=== PATIENT | female | born 1960 | race Caucasian/White ===

== ENCOUNTER 2016-09-20 07:30 | Observation (INO) | payer SELFPAY ==
[~2016-09-20] VITALS: Ht 162.6 cm; Wt 94.8 kg
--- NOTE | ~2016-09-20 | HP ---
PATIENT'S NAME: GEMMA KOHLI [facility] AGE: 55 Y [address] ROOM: [place] [id number] LOCATION: GPCU ADMIT DATE: 09/20/2016 History & Physical DISCHARGE DATE: FAMILY PHYSICIAN: Oral Kasper MD ATTENDING PHYSICIAN: Oral Kasper DATE OF SERVICE: 09/20/2016 CHIEF COMPLAINT: Nausea and vomiting. HISTORY OF PRESENT ILLNESS: The patient is a 55-year-old female, who has had severe nausea and vomiting along with some mild epigastric pain. The patient states she has also been battling upper respiratory system for a couple weeks and had a Z-Siva which initially helped but then progressively got worse again. The patient was also found to be tachycardic in the emergency department with elevated white blood cell count. The patient denies any chest pain, shortness of breath, fevers, chills, or headaches. PAST MEDICAL HISTORY: 1. Arrhythmia. 2. Chronic back pain. 3. Diabetes mellitus type 2. 4. Essential hypertension. 5. Pure hypercholesterolemia. 6. Seasonal allergies. 7. Irritable bowel syndrome with diarrhea. PAST SURGICAL HISTORY: 1. Cholecystectomy. 2. Hysterectomy. 3. Tubal ligation. ALLERGIES: 1. DOXYCYCLINE. 2. LEVAQUIN. 3. . 4. ZYRTEC. MEDICATIONS: Please see list. SOCIAL HISTORY: The patient is a former tobacco user. Denies any alcohol use. PATIENT'S NAME: GEMMA KOHLI [facility] AGE: 55 Y [address] ROOM: [place] [id number] LOCATION: GPCU ADMIT DATE: 09/20/2016 History & Physical DISCHARGE DATE: FAMILY PHYSICIAN: Oral Kasper MD ATTENDING PHYSICIAN: Oral Kasper FAMILY HISTORY: Noncontributory. REVIEW OF SYSTEMS: A complete review of systems obtained, pertinent positives and negatives as mentioned in the HPI. OBJECTIVE: VITAL SIGNS: Temperature 99.4, pulse 140, respirations 16, blood pressure 124/79. GENERAL: The patient is alert and oriented. Appears in mild distress due to dehydration and nausea. HEENT: Head, normocephalic and atraumatic. Eyes, conjunctivae clear. No scleral icterus. Mouth: Oropharynx grossly moist and patent. No lesions or exudates. NECK: Supple. No lymphadenopathy or thyromegaly. HEART: Tachycardic with no murmur. LUNGS: Decreased breath sounds in bases with no crackles or wheezes. ABDOMEN: Nontender to palpation. But patient states she is having some epigastric discomfort. No rebound, guarding, or organomegaly. EXTREMITIES: No cyanosis, clubbing, or edema. VASCULAR: Pulses +2 and equal bilaterally. SKIN: No rash or lesions. LYMPHATICS: No lymphadenopathy. NEUROLOGIC: Cranial nerves 2 through 12 grossly intact. LABORATORY DATA: Show white blood cell count 16.0, hemoglobin of 15.5. Procal 0.26 and sugar of 177. Chest x-ray shows linear scarring. ASSESSMENT: 1. Dehydration. 2. Gastroenteritis with nausea and vomiting. 3. Bronchitis with elevated white blood cell count and procalcitonin. 4. History of arrhythmia. 5. Hypertension. 6. Irritable bowel syndrome. 7. Diabetes mellitus type 2. PLAN: At this time, we will admit for observation and do aggressive fluid hydration IV. With her working in the [employer] and having this bronchitis for over 2 weeks and not improving and also be hypoxic at 92% on room air, we will start vancomycin and Zosyn and monitor. We will try to get a sputum PATIENT'S NAME: GEMMA KOHLI [facility] AGE: 55 Y [address] ROOM: [place] [address] LOCATION: [facility] ADMIT DATE: 09/20/2016 History & Physical DISCHARGE DATE: FAMILY PHYSICIAN: Oral Kasper MD ATTENDING PHYSICIAN: Oral Kasper culture also. We will do Gentry's and activity as tolerated along with the diabetic diet. We will do sliding scale insulin with meals and monitor her blood pressure and also her heart rate. We will continue to use supplemental oxygen to titrate greater than 90%. MD RILEY JOHNS/hennal /[id number] D: [id number] T: [id number] HISTORY & PHYSICAL
--- NOTE | ~2016-09-20 | ER ---
PATIENT'S NAME: REGI KOHLION Jessica [facility] AGE: 55 Y [address] ROOM: [place] [address] LOCATION: GPCU ADMIT DATE: 09/20/2016 ER/Outpatient Report DISCHARGE DATE: FAMILY PHYSICIAN: Oral Kasper MD ATTENDING PHYSICIAN: Oral Kasper Time of Arrival: 0730 hours. Time of Evaluation: 0744 hours. IDENTIFICATION: A 55-year-old female. CHIEF COMPLAINT: Vomiting. HISTORY OF PRESENT ILLNESS: The patient is a 55-year-old female, who works as an RN at [employer], who has had nausea, vomiting throughout the night, unable to keep anything down despite some oral Zofran she has taken. She denies any other problems. She states that her temperature is normally low and so a temp of 99 is elevated for her. She denies cough, denies shortness of breath. She has some epigastric pain. No chest pain. No dysuria. No increased frequency of urination. No constipation or diarrhea. However, later, she did change the story, and states that 1 to 2 weeks ago, she was treated with Zithromax for a URI. She has continued to need to use her inhaler, although she told the nurse she has not used her inhaler for a long time. She finished the Z- Siva and states the cough is improved. She also denied diarrhea on her initial assessment but has had several loose stools here and then admits to having diarrhea. No blood in her stools. No dark, tarry, or black stools. ALLERGIES: TO DOXYCYCLINE, ZYRTEC, AND LEVAQUIN. CURRENT MEDICATIONS: 1. Bystolic. 2. Lisinopril. 3. Metformin. 4. Pravastatin. 5. Flexeril. 6. Gabapentin. 7. Advil. 8. Zantac. 9. Ventolin. MEDICAL PROBLEMS: PATIENT'S NAME: GEMMA KOHLI [facility] AGE: 55 Y [address] ROOM: [place] [address] LOCATION: GPCU ADMIT DATE: 09/20/2016 ER/Outpatient Report DISCHARGE DATE: FAMILY PHYSICIAN: Oral Kasper MD ATTENDING PHYSICIAN: Oral Kasper Diabetes mellitus type 2, hyperlipidemia. The patient denies hypertension but is on 2 antihypertensives, suspect hypertension; gastroesophageal reflux disease, irritable bowel syndrome, asthma, and allergic rhinitis. PRIOR SURGERIES: Cholecystectomy, hysterectomy, oophorectomy. SOCIAL HISTORY: The patient lives here in [place]. 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 Tobacco use, quit 7 years ago. Alcohol use, denies. Drug use, denies. REVIEW OF SYSTEMS: All systems reviewed and negative other than what is noted in the HPI. FAMILY HISTORY: No pertinent family history. PHYSICAL EXAMINATION: VITAL SIGNS: Height 5 feet 4 inches, weight 94.8 kg, blood pressure 124/79, pulse 140, respirations 16, temp 99.4, sats 90% on room air. The sats did drop down to 84% to 85% on room air. She was placed on O2 2 L per nasal cannula. HEENT: Head: Normocephalic, atraumatic. Ears: TMs translucent both ears. Eyes: Pupils equal and reactive to light and accommodation. Extraocular movements intact. Nose: Mucosa pink. No lesions. Mouth: No lesions. Pharynx benign. NECK: Supple. No lymphadenopathy. No thyromegaly. LUNGS: Clear to auscultation. Breath sounds are equal. HEART: Sinus tachycardia. No murmur, rub, or gallop. ABDOMEN: Bowel sounds present. Soft, nondistended. Tender to palpation in the epigastrium. No rebound or guarding. SKIN: [place], warm, and dry. No lesions or rashes noted. NEURO: The patient is alert and oriented x4. Cranial nerves 2 through 12 grossly intact. Motor strength 5/5 throughout. Sensation is intact to light touch. No lower extremity edema. No calf tenderness. LABORATORY DATA AND X-RAYS: Two-view chest x-ray, no acute process, pending Radiology over-read. EKG: Sinus tachycardia at 129 beats per minute. No acute ST elevation or depression. Procalcitonin elevated at 0.26. Sodium 140, potassium 3.9, chloride 106, CO2 of 25, BUN 24, creatinine 0.8, blood sugar 177. Liver enzymes normal. Magnesium 1.8. CK 46, CK-MB less than 0.5, troponin I less than 0.040. ProBNP 32. UA: Specific gravity 1.020, pH 5, 5-10 white cells, 2-5 red cells, 0-2 epithelial cells, rare bacteria. Culture is pending. D- PATIENT'S NAME: GEMMA KOHLI [facility] AGE: 55 Y [address] ROOM: [place] [address] LOCATION: GPCU ADMIT DATE: 09/20/2016 ER/Outpatient Report DISCHARGE DATE: FAMILY PHYSICIAN: Oral Kasper MD ATTENDING PHYSICIAN: Oral Kasper dimer 0.44. Hemoglobin 15.5, hematocrit 48, platelets 309, white count 16 with 90% neutrophils. INR 0.95. Lactate elevated at 2.7. IMPRESSION AND PLAN: 1. Gastroenteritis with vomiting and diarrhea. IV fluids were initiated in the emergency room. The patient was given 1 L bolus of normal saline with a second liter to run at 200 mL/h. Zofran was given for nausea. 2. Sinus tachycardia, may be secondary to dehydration from gastroenteritis with vomiting and diarrhea. 3. Systemic inflammatory response syndrome. 4. Hyperglycemia. The patient was initiated on Zosyn 4.5 g IV and vancomycin per protocol. Stool studies were done. C. diff is negative. O and P screen is negative. Stool culture is pending. Fecal leukocytes, few occult blood positive. Plan for admission per Dr. Kasper. DYAN JONES MD CAR/modl /[id number] d: 09/20/[id number] t: 09/23/16 0700, OUTPATIENT REPORT
[2016-09-20 08:23] LABS: BASOPHIL % 0.3 %; EOSINOPHIL # 0.1 K/uL (0.0-0.5); EOSINOPHIL % 0.8 %; HEMOGLOBIN 15.5 g/dL (10.0-15.0); IMMATURE GRANULOCYTE # 0.1 K/uL (0.0-0.3); IMMATURE GRANULOCYTE % 0.4 %; LYMPHOCYTE # 0.7 K/uL (0.8-4.0); LYMPHOCYTE % 4.4 %; MCH 29.7 pg (27.0-34.0); MCHC 32.3 gm/dL (32.0-36.5); MONOCYTE # 0.5 K/uL (0.0-1.0); MONOCYTE % 3.4 %; MPV 9.8 fl (9.4-12.4); NEUTROPHIL # (ANC) 14.5 K/uL (1.8-7.8); NEUTROPHIL % 90.7 %; NRBC % 0 /100WBC (0-0.00); PLATELET COUNT 309 K/uL (150-450); RBC 5.22 M/uL (3.50-5.50); RDW-CV 12.9 % (11.9-14.6)
[2016-09-20 08:24] LABS: INR - (THERAPEUTIC) 0.95 (0.92-1.07); PTT 25 SECONDS (25-32)
[2016-09-20 08:32] LABS: BLOOD URINE 10 /UL (NEGATIVE); GLUCOSE URINE NEGATIVE (NEGATIVE); KETONE URINE NEGATIVE (NEGATIVE); LEUKOCYTES URINE 25 /UL (NEGATIVE); NITRITE URINE NEGATIVE (NEGATIVE); PROTEIN URINE 30 mg/dL (NEGATIVE); UROBILINOGEN URINE NORMAL (NORMAL)
[2016-09-20 08:41] LABS: COLOR URINE YELLOW (YELLOW); TURBIDITY URINE 1+ (CLEAR)
[2016-09-20 08:43] LABS: ALBUMIN 3.7 gm/dL (3.5-5.0); ALK PHOS 88 IU/L (33-138); ALT 58 IU/L (12-78); ANION GAP 12.9 (10.0-19.0); AST 27 IU/L (10-40); BLOOD UREA NITROGEN 24 mg/dL (6-24); CHLORIDE 106 mMol/L (96-110); CO2 25 mMol/L (22-32); CPK 46 IU/L (21-215); CREATININE 0.8 mg/dL (0.5-1.1); ESTIMATED GFR (MDRD EQUATION) > 60; MAGNESIUM 1.8 mg/dL (1.8-2.6); POTASSIUM 3.9 mMol/L (3.7-5.1); SODIUM 140 mMol/L (135-145); TOTAL BILIRUBIN 0.5 mg/dL (0.0-1.5); TOTAL PROTEIN 7.6 g/dL (6.0-8.4)
[2016-09-20 08:51] LABS: BACTERIA URINE RARE (NEGATIVE); EPITHELIAL URINE 0-2 #/HPF (NEGATIVE)
[2016-09-20 10:11] LABS: BARBITURATE NEGATIVE (NEGATIVE); COCAINE NEGATIVE (NEGATIVE); OPIATES POSITIVE (NEGATIVE)
[2016-09-20 10:12] LABS: AMPHETAMINE NEGATIVE (NEGATIVE)
[2016-09-20] MEDS ORDERED: PRINIVIL (ZESTRI5 MG PO (12:02)
[2016-09-20] MEDS ORDERED: BYSTOLIC5 MG PO (12:02)
[2016-09-20] MEDS ORDERED: PRAVASTATIN SOD10 MG PO (12:03)
[2016-09-20] MEDS ORDERED: GLUCOPHAGE500 MG PO (12:03)
[2016-09-20] MEDS ORDERED: CYCLOBENZAPRINE5 MG PO (12:04)
[2016-09-20] MEDS ORDERED: ADVIL200 MG PO (12:05)
[2016-09-20] MEDS ORDERED: NEURONTIN300 MG PO (12:05)
[2016-09-20] MEDS ORDERED: ZANTAC150 MG PO (12:06)
[2016-09-20] MEDS ORDERED: CLARITIN10 MG PO (12:07)
[2016-09-20] MEDS ORDERED: PROVENTIL OR V6.7 GM INH (12:07)
[2016-09-20] MEDS ORDERED: FLONASE 50 MCG/16 GM NOSE (12:08)
[2016-09-20] MEDS ORDERED: SINGULAIR10 MG PO (12:08)
[2016-09-20] MEDS ORDERED: VICKS DAYQUIL1 EACH PO (12:13)
[2016-09-20] MEDS ORDERED: NORCO 5-325 TA1 EACH PO (12:14)
--- NOTE | 2016-09-20 12:23 | NUR ---
Pt is 55 y/o female admit for hypoxia/N/V/SIRS for . Has many allergies. See chart. Red bracelet on. Pt alert and oriented x3. Came through ED. Hx dysrhythmias,DM,hypercholest,seasonal allergies,gerd,IBS,pneumonia, bronchitis. Pt came to ED this am with nausea/vomiting,not able to keep anything down and shortness breath with some wheezing. Former smoker-quit 7 yrs ago. Plan is to hydrate with IV fluids and IV antibiotics. Has frequent hacky non prod cough. Resides at home with significant other.
--- NOTE | 2016-09-20 19:11 | NUR ---
PATIENT ADMITTED TO PCU. UP TO BR W/ STAND BY ASSIST. VSS. NO N/V SINCE ADMISSION TO FLOOR.
[2016-09-21 03:47] LABS: BASOPHIL % 0.2 %; EOSINOPHIL # 0.2 K/uL (0.0-0.5); EOSINOPHIL % 2.9 %; HEMATOCRIT 37.9 % (33.0-46.0); HEMOGLOBIN 11.8 g/dL (10.0-15.0); IMMATURE GRANULOCYTE % 0.3 %; LYMPHOCYTE # 1.4 K/uL (0.8-4.0); LYMPHOCYTE % 21.6 %; MCH 29.5 pg (27.0-34.0); MCHC 31.1 gm/dL (32.0-36.5); MCV 94.8 fl (83.0-98.0); MONOCYTE # 0.6 K/uL (0.0-1.0); MPV 9.6 fl (9.4-12.4); NEUTROPHIL # (ANC) 4.3 K/uL (1.8-7.8); NRBC % 0 /100WBC (0-0.00); PLATELET COUNT 188 K/uL (150-450); RDW-CV 13.1 % (11.9-14.6); WBC 6.6 K/uL (4.0-11.0)
[2016-09-21 04:02] LABS: ANION GAP 10.6 (10.0-19.0); BLOOD UREA NITROGEN 15 mg/dL (6-24); CHLORIDE 111 mMol/L (96-110); CO2 25 mMol/L (22-32); CREATININE 0.5 mg/dL (0.5-1.1); ESTIMATED GFR (MDRD EQUATION) > 60; POTASSIUM 3.6 mMol/L (3.7-5.1); SODIUM 143 mMol/L (135-145)
[2016-09-21 04:04] LABS: CALCIUM 7.2 mg/dL (8.5-10.5)
--- NOTE | 2016-09-21 05:09 | NUR ---
Significant Event: Pt A&Ox3. VS stable, remains on RA. C/o pain associated with head. Last gave Motrin @ 3912. Pt has been having diarrhea--does have hx of IBS. No c/o N/V on shift. Pt refuses accuchecks. NS @ 125, int zosyn and tapano. Up ad marco. Follow up: Continue IVF and plan of care.
[2016-09-21] MEDS ORDERED: AUGMENTIN 875-1 EACH PO (09:37)
--- NOTE | 2016-09-21 12:01 | NUR ---
PATIENT DISMISSED WITH FRIEND TO HOME PER PRIVATE AUTO. PATIENT TRANSFERED TO CAR BY NURSE AID. REVIEWED DISMISSAL INSTRUCTIONS WITH PATIENT, INCLUDING NEW MEDICATIONS AND APPOINTMENTS. PATIENT VERBALIZED UNDERSTANDING OF INSTRUCTIONS. GAVE PATIENT EDUCATION SHEET ON NEW MEDICATION AND DIABETES EDUCATION BOOK. PATIENT STATED SHE HAD NO FURTHER QUESTIONS. ENCOURAGED PATIENT TO CHECK BLOOD SUGARS AT HOME DR PRESCRIBED.
== END 2016-09-21 11:25 | disposition disaster alternative care site (69) ==
LOC: GMED 07:30 → GPCU 10:12
PROVIDERS: Family Medicine; ADMIT Family Medicine
DX: E86.0 Dehydration (principal); R00.0 Tachycardia, unspecified; R09.02 Hypoxemia; I10 Essential (primary) hypertension; E11.9 Type 2 diabetes mellitus without complications; E87.6 Hypokalemia; J40 Bronchitis, not specified as acute or chronic; E78.00 Pure hypercholesterolemia, unspecified; M54.9 Dorsalgia, unspecified; G89.29 Other chronic pain; R65.10 Systemic inflammatory response syndrome (SIRS) of non-infectious origin without acute organ dysfunction; Z88.1 Allergy status to other antibiotic agents; Z87.891 Personal history of nicotine dependence; Z88.8 Allergy status to other drugs, medicaments and biological substances; Z79.899 Other long term (current) drug therapy; Z90.49 Acquired absence of other specified parts of digestive tract; Z90.710 Acquired absence of both cervix and uterus; Z98.51 Tubal ligation status
CPT/HCPCS: G0378; J2001; J2405; J2543; J3370; J7030; J7040; J7050